=== PATIENT | female | born 1985 ===

== ENCOUNTER 2024-03-19 20:43 | Outpatient (REF) | payer BC, SELFPAY ==
[2024-03-26 14:10] LABS: HPV Aptima Positive (Negative); Pap IG (Image Guided) Note (.)
== END 2024-03-19 20:44 | disposition home or self-care (01) ==
LOC: LAB 20:43
PROVIDERS: Visit Provider Nurse Practitioner
DX: Z12.4 Encounter for screening for malignant neoplasm of cervix (principal); A59.9 Trichomoniasis, unspecified
CPT/HCPCS: 87480; 87510; 87624; 87660; 88175; G0145